=== PATIENT | male | born 2000 | race Caucasian/White ===

== ENCOUNTER 2019-06-18 18:44 | Emergency (ER) | payer SELFPAY ==
[~2019-06-18] VITALS: Ht 182.9 cm; Wt 65.9 kg
[2019-06-18] MEDS ORDERED: BUPIVACAINE HCL/PF 0.5% 10 ML VIAL SQ ONE (19:15)
[2019-06-18] MEDS ORDERED: PERTUSS(ACELL),DIPH,TET VAC/PF 0.5 ML VIAL IM ONE (19:15)
[2019-06-18] MEDS ORDERED: IBUPROFEN 600 MG TABLET PO ONE (19:15)
[2019-06-18 21:32] VITALS: BP 115/70
== END 2019-06-18 21:42 | disposition home or self-care (01) ==
LOC: EMS 18:44
DX: S71.111A Laceration without foreign body, right thigh, initial encounter (principal); W26.0XXA Contact with knife, initial encounter; Y93.89 Activity, other specified; Y92.89 Other specified places as the place of occurrence of the external cause; Y99.8 Other external cause status
CPT/HCPCS: 12002; 90471; 90715; 93926; 96372; 99284; J3490

== ENCOUNTER 2025-02-27 10:46 | Emergency (ER) | payer OTHER ==
[~2025-02-27] VITALS: Ht 177.8 cm; Wt 72.7 kg
[~2025-02-27 10:46] MED LIST: DOXY-354 PO
[2025-02-27 10:50] VITALS: TEMP 98.1
[2025-02-27 13:27] VITALS: BP 125/67; PULSE 74; RESP 18; O2SAT 98
== END 2025-02-27 13:34 ==
LOC: EMS 10:46
DX: K59.00 Constipation, unspecified (principal); Z03.821 Encounter for observation for suspected ingested foreign body ruled out; Z87.891 Personal history of nicotine dependence; Z79.899 Other long term (current) drug therapy
CPT/HCPCS: 71250; 72192; 74150; 99284; Z7502

== ENCOUNTER 2025-02-27 17:14 | Inpatient (IN) | payer OTHER ==
[~2025-02-27] VITALS: Ht 180.3 cm; Wt 75.5 kg
[2025-02-27] MEDS: ONDANSETRON HCL 4 MG/2 ML VIAL IVP ONE (18:03)
[2025-02-27] MEDS: KETOROLAC TROMETHAMINE 30 MG/ML VIAL IVP ONE (18:03)
[2025-02-27 18:09] LABS: PLATELET COUNT (AUTO) 199 K/uL (150-450); RED BLOOD CELL COUNT(AUTO) 5.18 MIL/uL (4.50-5.90); RED CELL DISTRIBUTION WIDTH 13.1 % (11.5-14.5); WHITE BLOOD COUNT (AUTO) 6.3 K/uL (4.5-11.0)
[2025-02-27 18:17] LABS: CALCIUM, TOTAL 8.7 mg/dL (8.8-10.5); CREATININE 0.64 mg/dL (0.60-1.30); GLOMERULAR FILTR. RATE CALC > 60 mL/min (>60); GLUCOSE,RANDOM 99 mg/dL (70-110); SODIUM SERUM 140 mmol/L (136-145); UREA NITROGEN, BLOOD 5 mg/dL (7-18)
[2025-02-27 22:13] VITALS: BP 117/80; PULSE 58; RESP 18; TEMP 97.9; O2SAT 98; O2SAT 99
[2025-02-28] MEDS ORDERED: ONDANSETRON HCL 4 MG/2 ML VIAL IVP PRN (02:45)
[2025-02-28] MEDS ORDERED: LOPERAMIDE HCL 2 MG/15 ML SUSPENSION UDCUP PO PRN (02:45)
[2025-02-28] MEDS ORDERED: IBUPROFEN 600 MG TABLET PO PRN (02:45)
[2025-02-28] MEDS ORDERED: ZOLPIDEM TARTRATE 5 MG TABLET PO PRN (02:45)
[2025-02-28] MEDS ORDERED: IPRATROPIUM BROMIDE 0.5 MG/2.5 ML NEB SOLUTION NEB PRN (02:45)
[2025-02-28] MEDS ORDERED: PROMETHAZINE HCL 25 MG TABLET PO PRN (02:45)
[2025-02-28] MEDS ORDERED: ALBUTEROL SULFATE 2.5 MG/0.5 ML NEB SOLUTION NEB PRN (02:45)
[2025-02-28] MEDS ORDERED: DICYCLOMINE HCL 10 MG CAPSULE PO PRN (02:45)
[2025-02-28] MEDS ORDERED: BACLOFEN 10 MG TABLET PO PRN (02:45)
[2025-02-28] MEDS ORDERED: ACETAMINOPHEN 325 MG TABLET PO PRN ×2 (02:45)
[2025-02-28] MEDS ORDERED: MAG HYDROX/ALUMINUM HYD/SIMETH ES 30 ML SUSPENSION UDCUP PO PRN (02:45)
[2025-02-28] MEDS ORDERED: BISACODYL 10 MG RECTAL RECTAL SUPPOSITORY PR PRN (02:45)
[2025-02-28] MEDS: SODIUM CHLORIDE 0.45% 1,000 ML IV SCH (03:20)
[2025-02-28 04:00] VITALS: BP_SYST 102; BP_SYST 108; BP_DIAS 68; PULSE 57; RESP 18; TEMP 97.9; O2SAT 98
[2025-02-28] MEDS: HEPARIN SODIUM,PORCINE 5,000 UNITS/ML VIAL SQ SCH (08:08)
[2025-02-28] MEDS: PANTOPRAZOLE SODIUM 40 MG DR TABLET PO SCH (08:08)
[2025-02-28 08:21] VITALS: BP 106/60; PULSE 55; RESP 18; TEMP 97.9; O2SAT 99
[2025-02-28 16:12] VITALS: BP 115/69; PULSE 57; RESP 19; TEMP 98.4; O2SAT 98
[2025-02-28 18:52] LABS: AMPHET/METH SCREEN,URINE NEGATIVE (NEGATIVE); BARBITURATE SCREEN, URINE NEGATIVE (NEGATIVE); CANNABINOID SCREEN,URINE POSITIVE (NEGATIVE); COCAINE SCREEN,URINE NEGATIVE (NEGATIVE); METHADONE SCREEN, URINE NEGATIVE (NEGATIVE)
[2025-02-28 18:53] LABS: ALCOHOL, URINE DRUG SCREEN NEGATIVE (NEGATIVE)
[2025-02-28 18:58] LABS: PH,URINE DRUG SCREEN 7.5 (5.0-8.0)
[2025-02-28] MEDS: MAGNESIUM HYDROXIDE SUSPENSION 30 ML UDCUP PO PRN (20:01)
[2025-02-28 20:05] VITALS: BP 120/73; PULSE 67; RESP 18; TEMP 98.6; O2SAT 98
[2025-03-01 05:25] VITALS: BP 109/64; PULSE 55; RESP 18; TEMP 98; O2SAT 98
[2025-03-01 07:44] VITALS: BP 113/78; PULSE 60; RESP 19; TEMP 97.7; O2SAT 98
[2025-03-01 20:00] VITALS: BP 128/83; PULSE 65; RESP 18; TEMP 98.2; O2SAT 96
[2025-03-02 04:00] VITALS: BP 108/60; PULSE 56; RESP 18; TEMP 98.1; O2SAT 97
== END 2025-03-02 06:18 | DRG 897 ==
LOC: EMS 17:14 → EDH 20:15 → 6N 21:56
PROVIDERS: ADMIT Hospitalist; ATTEND Hospitalist
DX: F11.93 Opioid use, unspecified with withdrawal (principal); Z87.891 Personal history of nicotine dependence
CPT/HCPCS: 80048; 80307; 85025; 99285; G0480; J1644; J1885; J2405